=== PATIENT | female | born 1995 | race Caucasian/White ===

== ENCOUNTER 2017-06-18 13:09 | Emergency (ER) | payer OTHER ==
[2017-06-18 13:32] VITALS: RESP 17; TEMP 98.3; BMI 29.9
[2017-06-18] MEDS ORDERED: Sodium Chloride 0.9% 1,000 ML IV STA (14:02)
[2017-06-18 14:24] LABS: BASO # 0.04 K/mm3 (0.0-2.0); BASO % 0.7 % (0.0-3.0); EOS # 0.1 (0.0-0.7); EOS % 1.4 % (1.5-5.0); GRAN # 2.49 (1.4-6.5); GRAN % 42.8 % (50.0-68.0); LYMPH # 2.8 (1.2-3.4); LYMPH % 48.1 % (22.0-35.0); MEAN CELL VOLUME 87.9 fl (80.0-105.0); MEAN CORPUSCULAR HEMOGLOBIN 30.2 pg (25.0-35.0); MEAN CORPUSCULAR HGB CONC 34.3 g/dl (31.0-37.0); MEAN PLATELET VOLUME 9.6 fl (7.0-11.0); MONO # 0.4 (0.1-0.6); RED CELL DISTRIBUTION WIDTH 12.7 % (11.5-14.5); WHITE BLOOD COUNT 5.8 10^3/ul (4.5-11.0)
[2017-06-18 14:25] LABS: PH,URINE 6.5 (4.7-8.0); URINE BILIRUBIN NEGATIVE (NEGATIVE); URINE BLOOD MODERATE (NEGATIVE); URINE GLUCOSE (UA) NEGATIVE (NEGATIVE); URINE KETONE NEGATIVE (NEGATIVE); URINE LEUKOCYTE ESTERASE NEGATIVE Leu/uL (NEGATIVE); URINE PROTEIN NEGATIVE mg/dL (<30 mg/dL); URINE UROBILINOGEN 0.2 E.U./dL (<1 E.U./dL)
[2017-06-18 14:27] LABS: ALB/GLOB RATIO 1.2 (1.1-1.8); ALKALINE PHOSPHATASE 57 U/L (38-126); ALT/SGPT 26 U/L (7-56); AST/SGOT 23 U/L (14-36); BILIRUBIN,TOTAL 0.5 mg/dL (0.2-1.3); BLOOD UREA NITROGEN 13 mg/dL (7-21); CALCIUM 9.2 mg/dL (8.4-10.5); CARBON DIOXIDE 25 mmol/L (21-33); CHLORIDE 107 mmol/L (98-107); GFR AFRICAN-AMERICAN > 60; GLUCOSE,RANDOM 91 mg/dL (70-110); LIPASE 56 U/L (23-300); POTASSIUM 3.6 mmol/L (3.6-5.0); SODIUM 142 mmol/L (132-148); TOTAL PROTEIN 7.3 g/dL (5.8-8.3); URINE APPEARANCE SL CLOUDY (CLEAR); URINE COLOR YELLOW (YELLOW)
[2017-06-18 14:33] LABS: URINE RBC 0 - 2 /hpf (0-2); URINE WBC 0 - 2 /hpf (0-6)
[2017-06-18 14:34] LABS: URINE BACTERIA FEW (NEG)
[2017-06-18] MEDS ORDERED: Iohexol 350 MG/100 ML VIAL ONE (14:34)
--- NOTE | 2017-06-18 14:45 | ED PDOC ---
Arrival/HPI - General Chief Complaint: Abdominal Pain Time Seen by Provider: 06/18/17 13:41 Historian: Patient - History of Present Illness Narrative History of Present Illness (Text): 06/18/17 14:37 21yr old female presents today with llq abdominal pain and epigastric pain. pt states she has been having llq abdominal pain x 1 week and has been having recurrent epigastric pain and feeling of reflux. pt states it mostly occurs after eating tomato sauce. pt denies cp or sob. no vomiting/diarrhea. denies urinary symptoms. denies vaginal bleeding or vaginal discharge. pt denies back pain. no dizziness or weakness. no medications have been taking for pain at home. pt denies sick contacts. no fever/chills. no other complaints. Time/Duration: 1 week Symptom Onset: Sudden Symptom Course: Intermittent, Worsening Quality: Aching Severity Level: 5 Past Medical History - Provider Review Nursing Documentation Reviewed: Yes - Travel History Have you recently traveled outside [place] w/in the past 3 mons?: No - Past History Past History: No Previous - Tetanus Immunization Tetanus Immunization: Unknown - Psychiatric Hx Depression: No Hx Emotional Abuse: No Hx Physical Abuse: No Hx Substance Use: No - Past Surgical History Past Surgical History: No Previous - Anesthesia Hx Anesthesia: No - Suicidal Assessment Feels Threatened In Home Enviroment: No Family/Social History - Physician Review Nursing Documentation Reviewed: Yes Family/Social History: Unknown Family HX Smoking Status: Never Smoked Hx Alcohol Use: No Hx Substance Use: No Hx Substance Use Treatment: No Allergies/Home Meds Allergies/Adverse Reactions: Allergies No Known Allergies Allergy (Verified 06/18/17 13:33) Review of Systems - Review of Systems Constitutional: absent: Fatigue, Fevers Respiratory: absent: SOB, Cough Cardiovascular: absent: Chest Pain, Palpitations Gastrointestinal: Abdominal Pain, Nausea, Vomiting. absent: Diarrhea Genitourinary Female: absent: Dysuria, Frequency, Hematuria Musculoskeletal: absent: Arthralgias, Back Pain, Neck Pain Skin: absent: Rash, Pruritis Neurological: absent: Headache, Dizziness Psychiatric: absent: Anxiety, Depression Physical Exam Vital Signs Reviewed: Yes Vital Signs Temp Pulse Resp BP Pulse Ox 06/18/17 13:32 98.3 F 98 H 17 109/77 98 06/18/17 13:31 98.3 F 98 H 17 109/77 98 Temperature: Afebrile Blood Pressure: Normal Pulse: Regular Respiratory Rate: Normal Appearance: Positive for: Well-Appearing, Non-Toxic, Comfortable Pain Distress: None Mental Status: Positive for: Alert and Oriented X 3 - Systems Exam Head: Present: Atraumatic Mouth: Present: Moist Mucous Membranes Neck: Present: Normal Range of Motion Respiratory/Chest: Present: Clear to Auscultation, Good Air Exchange. No: Respiratory Distress, Accessory Muscle Use Cardiovascular: Present: Regular Rate and Rhythm, Normal S1, S2. No: Murmurs Abdomen: Present: Tenderness (+ llq and luq abd tenderness), Normal Bowel Sounds. No: Distention, Peritoneal Signs, Rebound, Guarding, McBurney's Point Tender Genitourinary/Pelvic Exam: Present: Normal External Genitalia, Cervical os Closed, Other (chaparoned by sampson sue RN). No: Vaginal Discharge, Vaginal Bleeding, Vaginal Lesions, Adenexal Tenderness, Adenexal Mass, Cervical Motion Tendernes, Odor Back: Present: Normal Inspection. No: CVA Tenderness, Midline Tenderness, Paraspinal Tenderness Upper Extremity: Present: Normal ROM Lower Extremity: Present: Normal ROM Neurological: Present: GCS=15, Speech Normal Skin: Present: Warm, Dry, Normal Color. No: Rashes Psychiatric: Present: Alert, Oriented x 3 Medical Decision Making ED Course and Treatment: 06/18/17 14:46 Patient is nontoxic well appearing with stable vital signs presenting with 1 week of worsening abdominal pain CBC wnl CMP wnl Lipase wnl Urinalysis + blood CAT scan: FINDINGS: LOWER THORAX: No visible consolidation, pleural effusion, or pneumothorax. LIVER: Mild periportal edema. GALLBLADDER AND BILE DUCTS: Unremarkable. PANCREAS: Unremarkable. SPLEEN: Unremarkable. ADRENALS: Unremarkable. KIDNEYS AND URETERS: The kidneys enhance symmetrically. No hydronephrosis or obstructing calculus identified. 2 mm nonobstructing right renal calculus. VASCULATURE: No aortic aneurysm. BOWEL: Stomach is nondistended. Lack of oral contrast limits evaluation for bowel pathology. Bowel loops appear within normal limits of caliber without evidence of obstruction. APPENDIX: The appendix appears within normal limits of caliber. No secondary signs of acute appendicitis. PERITONEUM: No significant free fluid. No definite free air. LYMPH NODES: No bulky adenopathy identified. BLADDER: Decompressed urinary bladder limits evaluation. REPRODUCTIVE: The uterus is present. BONES: No acute osseous abnormality is detected. OTHER FINDINGS: None. IMPRESSION: Mild periportal edema. Nonobstructing 2 mm right upper pole renal calculus. Patient reassessment:pt non toxic well appearing; no distress. stable vitals. pt feeling better after medications ekG: sinus bradycardia at 59b/m no st elevations, normal axis, normal intervals. cxr; wnl pelvic examination; no discharge. no CMT or adnexal tenderness. will send Gc/Chlamydia Discussed all results with patient in depth Impression: Abdominal pain Tylenol every 6 hours as needed for pain Pepcid one tablet daily Follow up with primary care physician within the next 2 days Follow up with the GI doctor within the next 2 days Follow up with the COMPUTER ENGINEER within the next 2 days. Return immediately if symptoms worsen persist or if new symptoms develop: High fevers, increasing pain, vomiting, diarrhea or any other concerning symptoms develop - Lab Interpretations Lab Results: 06/18/17 14:00 06/18/17 14:00 Lab Results 06/18/17 14:00: WBC 5.8, RBC 3.98, Hgb 12.0, Hct 35.0 L, MCV 87.9, MCH 30.2, MCHC 34.3, RDW 12.7, Plt Count 214, MPV 9.6, Gran % 42.8 L, Lymph % (Auto) 48.1 H, [place] % (Auto) 7.0 H, Eos % (Auto) 1.4 L, Baso % (Auto) 0.7, Gran # 2.49, Lymph # 2.8, [place] # 0.4, Eos # 0.1, Baso # 0.04 06/18/17 14:00: Sodium 142, Potassium 3.6, Chloride 107, Carbon Dioxide 25, Anion Gap 14, BUN 13, Creatinine 0.7, Est GFR ( Amer) > 60, Est GFR (Non- Af Amer) > 60, Random Glucose 91, Calcium 9.2, Total Bilirubin 0.5, AST 23, ALT 26, Alkaline Phosphatase 57, Total Protein 7.3, Albumin 4.0, Globulin 3.3, Albumin/Globulin Ratio 1.2, Lipase 56 06/18/17 14:00: Urine Color Yellow, Urine Appearance Sl cloudy, Urine pH 6.5, Ur Specific [place] 1.025, Urine Protein Negative, Urine Glucose (UA) Negative, Urine Ketones Negative, Urine Blood Moderate H, Urine Nitrate Negative, Urine Bilirubin Negative, Urine Urobilinogen 0.2, Ur Leukocyte Esterase Negative, Urine RBC 0 - 2, Urine WBC 0 - 2, Ur Epithelial Cells 6 - 8, Urine Bacteria Few , Urine Other Mucus - RAD Interpretation Radiology Orders: 06/18/17 14:01 ABD & PELVIS IV CONTRAST ONLY [CT] Stat 06/18/17 16:01 CHEST PORTABLE [RAD] Stat - Medication Orders Current Medication Orders: Discontinued Medications Famotidine (Pepcid) 20 mg IVP STAT STA Stop: 06/18/17 14:03 Last Admin: 06/18/17 14:19 Dose: 20 mg Sodium Chloride (Sodium Chloride 0.9%) 1,000 mls @ 999 mls/hr IV .Q1H1M STA Stop: 06/18/17 15:02 Last Admin: 06/18/17 14:19 Dose: 999 mls/hr Iohexol (Omnipaque 350 100 Ml) Confirm Administered Dose 350 mg .ROUTE .K-MED ONE Stop: 06/18/17 14:35 Ondansetron HCl (Zofran Inj) 4 mg IVP STAT STA Stop: 06/18/17 14:03 Last Admin: 06/18/17 14:19 Dose: 4 mg Disposition/Present on Arrival - Present on Arrival Any Indicators Present on Arrival: No History of DVT/PE: No History of Uncontrolled Diabetes: No Urinary Catheter: No History of Decub. Ulcer: No History Surgical Site Infection Following: None - Disposition Have Diagnosis and Disposition been Completed?: Yes Diagnosis: Abdominal pain Disposition: HOME/ ROUTINE Disposition Time: 16:15 Patient Plan: Discharge Condition: GOOD Discharge Instructions (ExitCare): Gastroesophageal Reflux Disease (ED), Acute Abdominal Pain (ED) Additional Instructions: Tylenol every 6 hours as needed for pain Pepcid one tablet daily Follow up with primary care physician within the next 2 days Follow up with the GI doctor within the next 2 days Follow up with the COMPUTER ENGINEER within the next 2 days. Return immediately if symptoms worsen persist or if new symptoms develop: High fevers, increasing pain, vomiting, diarrhea or any other concerning symptoms develop Prescriptions: Famotidine [Pepcid] 20 mg PO DAILY #30 tab Referrals: Anyi Ceidllo MD [Primary Care Provider] - Follow up with primary Christopher Oh MD [Staff Provider] - Follow up with primary Aruna Maradiaga MD [Staff Provider] - [facility] - Follow up with primary Forms: [employer] (Uzbek), WORK NOTE
--- NOTE | 2017-06-18 15:10 | CT ---
PROCEDURE: CT Abdomen and Pelvis with contrast HISTORY: abd pain COMPARISON: None available. TECHNIQUE: Contrast dose: 100 cc Omnipaque 350 Radiation dose: Total exam DLP = 626.84 mGy-cm. This CT exam was performed using one or more of the following dose reduction techniques: Automated exposure control, adjustment of the mA and/or kV according to patient size, and/or use of iterative reconstruction technique. FINDINGS: LOWER THORAX: No visible consolidation, pleural effusion, or pneumothorax. LIVER: Mild periportal edema. GALLBLADDER AND BILE DUCTS: Unremarkable. PANCREAS: Unremarkable. SPLEEN: Unremarkable. ADRENALS: Unremarkable. KIDNEYS AND URETERS: The kidneys enhance symmetrically. No hydronephrosis or obstructing calculus identified. 2 mm nonobstructing right renal calculus. VASCULATURE: No aortic aneurysm. BOWEL: Stomach is nondistended. Lack of oral contrast limits evaluation for bowel pathology. Bowel loops appear within normal limits of caliber without evidence of obstruction. APPENDIX: The appendix appears within normal limits of caliber. No secondary signs of acute appendicitis. PERITONEUM: No significant free fluid. No definite free air. LYMPH NODES: No bulky adenopathy identified. BLADDER: Decompressed urinary bladder limits evaluation. REPRODUCTIVE: The uterus is present. BONES: No acute osseous abnormality is detected. OTHER FINDINGS: None. IMPRESSION: Mild periportal edema. Nonobstructing 2 mm right upper pole renal calculus.
[2017-06-18 16:15] VITALS: BP 107/70; PULSE 67
[2017-06-18 16:16] VITALS: O2SAT 100
--- NOTE | 2017-06-18 17:01 | RAD ---
HISTORY: epigastric pain COMPARISON: Chest x-ray performed 06/16/13 TECHNIQUE: Chest, one view. FINDINGS: LUNGS: No focal consolidation. PLEURA: No significant pleural effusion identified. No definite pneumothorax . CARDIOVASCULAR: The cardiomediastinal silhouette appears within normal limits of size. OSSEOUS STRUCTURES: No acute osseous abnormality identified. VISUALIZED UPPER ABDOMEN: Unremarkable. OTHER FINDINGS: None. IMPRESSION: No focal consolidation, significant pleural effusion, or definite pneumothorax identified.
--- NOTE | 2017-06-20 00:28 | CARD ---
APPROVED REPORT EKG Measurement Heart [id number] <Conclusion> Sinus bradycardia Otherwise normal ECG
== END 2017-06-18 17:12 | disposition home or self-care (01) ==
LOC: ED 13:09
DX: R10.32 Left lower quadrant pain (principal); R10.13 Epigastric pain
CPT/HCPCS: 71010; 74177; 80053; 81001; 83690; 85025; 87491; 87591; 96361; 96374; 96375; 99284; J2405; J7040; Q9967

== ENCOUNTER 2017-06-27 10:22 | Emergency (ER) | payer OTHER ==
[2017-06-27 10:23] VITALS: BMI 29.9
[2017-06-27 10:47] VITALS: RESP 18; TEMP 98.5
--- NOTE | 2017-06-27 10:55 | ED PDOC ---
Arrival/HPI - General Chief Complaint: Abdominal Pain Time Seen by Provider: 06/27/17 10:48 Historian: Patient - History of Present Illness Narrative History of Present Illness (Text): 06/27/17 10:49 21 y/o female, pmh including gastritis, nkda, c/o burning pain and out of the pepcid x 2 days. Pt. stated that she had the epigastric burning pain last night after dinner, resolved now, suppose to be on the pepcid, has the pepcid prescription but didn't get it fill it yet as she will today. Pt. has no chest pain or shortness of breath, no night sweat, no dizziness, no palpitation, no other medical or psychological complaints. Past Medical History - Provider Review Nursing Documentation Reviewed: Yes - Past History Past History: No Previous - Infectious Disease Hx of Infectious Diseases: None - Tetanus Immunization Tetanus Immunization: Unknown - Psychiatric Hx Depression: No Hx Emotional Abuse: No Hx Physical Abuse: No Hx Substance Use: No - Past Surgical History Past Surgical History: No Previous - Anesthesia Hx Anesthesia: No - Suicidal Assessment Feels Threatened In Home Enviroment: No Family/Social History - Physician Review Nursing Documentation Reviewed: Yes Family/Social History: Unknown Family HX Smoking Status: Never Smoked Hx Alcohol Use: No Hx Substance Use: No Hx Substance Use Treatment: No Allergies/Home Meds Allergies/Adverse Reactions: Allergies No Known Allergies Allergy (Verified 06/27/17 10:47) Home Medications: Home Meds Medication Instructions Recorded Confirmed No Known Home Med 06/27/17 06/27/17 Review of Systems - Review of Systems Constitutional: absent: Fatigue, Fevers Eyes: absent: Vision Changes ENT: absent: Hearing Changes Respiratory: absent: SOB, Cough Cardiovascular: absent: Chest Pain Gastrointestinal: absent: Abdominal Pain, Nausea, Vomiting Musculoskeletal: absent: Arthralgias, Myalgias Skin: absent: Rash, Pruritis Psychiatric: absent: Anxiety, Depression, Suicidal Ideation Physical Exam Vital Signs Reviewed: Yes Vital Signs Temp Pulse Resp BP Pulse Ox 06/27/17 10:38 98.5 F 99 H 18 103/75 97 Temperature: Afebrile Blood Pressure: Normal Pulse: Regular Respiratory Rate: Normal Appearance: Positive for: Well-Appearing, Non-Toxic, Comfortable Pain Distress: None Mental Status: Positive for: Alert and Oriented X 3 - Systems Exam Head: Present: Atraumatic, Normocephalic Pupils: Present: PERRL Extroacular Muscles: Present: EOMI Conjunctiva: Present: Normal Mouth: Present: Moist Mucous Membranes Neck: Present: Normal Range of Motion Respiratory/Chest: Present: Clear to Auscultation, Good Air Exchange. No: Respiratory Distress, Accessory Muscle Use Cardiovascular: Present: Regular Rate and Rhythm, Normal S1, S2. No: Murmurs Abdomen: Present: Tenderness (mild epigastric tenderness), Normal Bowel Sounds. No: Distention, Peritoneal Signs, Rebound, Guarding Back: Present: Normal Inspection Upper Extremity: Present: Normal Inspection. No: Cyanosis, Edema Lower Extremity: Present: Normal Inspection. No: Edema Neurological: Present: GCS=15, Speech Normal, Motor Func Grossly Intact, Gait Normal, Memory Normal Skin: Present: Warm, Dry, Normal Color. No: Rashes Psychiatric: Present: Alert, Oriented x 3, Normal Insight, Normal Concentration Medical Decision Making ED Course and Treatment: 06/27/17 10:57 -Pepcid (preg. category B). -Discharge home with education on fill your pepcid, go to see your own pmd and GI within 2 days, return to the ER for any new or worsening signs or symptoms. - PA / NATURAL FOODS CLERK / Resident Statement MD/DO has reviewed & agrees with the documentation as recorded. Disposition/Present on Arrival - Present on Arrival Any Indicators Present on Arrival: No History of DVT/PE: No History of Uncontrolled Diabetes: No Urinary Catheter: No History of Decub. Ulcer: No History Surgical Site Infection Following: None - Disposition Have Diagnosis and Disposition been Completed?: Yes Diagnosis: Gastritis Disposition: HOME/ ROUTINE Disposition Time: 10:58 Patient Plan: Discharge Condition: GOOD Additional Instructions: Discharge home with education on fill your pepcid, go to see your own pmd and GI within 2 days, return to the ER for any new or worsening signs or symptoms. Referrals: Isa Laureano MD [Medical Doctor] - Follow up with primary Forms: [employer] (Bulgarian), WORK NOTE
[2017-06-27 11:10] VITALS: BP 105/71; PULSE 86; O2SAT 98
== END 2017-06-27 11:10 | disposition home or self-care (01) ==
LOC: ED 10:22
DX: K29.70 Gastritis, unspecified, without bleeding (principal)